=== PATIENT | female | born 1965 | race Caucasian/White ===

== ENCOUNTER 2018-10-13 11:42 | Emergency (ER) | payer MEDICAID, OTHER ==
[~2018-10-13] VITALS: Ht 149.9 cm; Wt 65.0 kg
[~2018-10-13 11:42] MED LIST: NAPR375T PO
[2018-10-13 12:10] VITALS: BP 154/83
--- NOTE | 2018-10-13 12:22 | NUR ---
PT GIVEN ICE PACK FOR SWELLING
[2018-10-13] MEDS ORDERED: HYDROcodone/acetaminophen 10/325mg tab PO ONE (12:35)
[2018-10-13] MEDS ORDERED: HYDR-4353 PO (13:15)
== END 2018-10-13 13:24 | disposition home or self-care (01) ==
LOC: ER 11:42
DX: S62.617A Displaced fracture of proximal phalanx of left little finger, initial encounter for closed fracture (principal); S80.212A Abrasion, left knee, initial encounter; Z98.51 Tubal ligation status; Z98.890 Other specified postprocedural states; W18.49XA Other slipping, tripping and stumbling without falling, initial encounter; Y93.02 Activity, running; Y92.481 Parking lot as the place of occurrence of the external cause; Y99.9 Unspecified external cause status
CPT/HCPCS: 26725; 73130; 99284

== ENCOUNTER 2021-07-13 01:21 | Emergency (ER) | payer MEDICAID, OTHER ==
[~2021-07-13] VITALS: Ht 149.9 cm; Wt 45.5 kg
[2021-07-13] MEDS ORDERED: mag hydrox/Alum hydrox/simeth 30ml oral suspension PO ONE (01:45)
[2021-07-13] MEDS ORDERED: fentaNYL/PF 50MCG/1 ML 2ML syringe IV ONE (01:45)
[2021-07-13] MEDS ORDERED: ondansetron/PF 4mg/2ml inj IV ONE (01:45)
[2021-07-13] MEDS ORDERED: famotidine/PF 10 mg/ml inj IV ONE (01:45)
[2021-07-13] MEDS ORDERED: normal saline 1000ml 1,000 ML IV ONE ×2 (01:45→02:50)
[2021-07-13] MEDS ORDERED: LIDOcaine Viscous 15ml cup MM ONE (01:45)
[2021-07-13] MEDS ORDERED: pantoprazole 40MG/D5 100ML BAG 100 ML IV ONE (01:45)
[2021-07-13] MEDS ORDERED: pantoprazole 40MG/NS 100ML BAG 100 ML IV ONE (01:46)
[2021-07-13 01:57] LABS: BASOPHILS % (AUTO) 0.2 % (0-1); EOSINOPHILS % (AUTO) 0.3 % (0-6); HEMATOCRIT 27.1 % (35.0-45.0); HEMOGLOBIN 9.1 g/dl (12.0-16.0); LYMPHOCYTES # (AUTO) 1.9 X10'3 (1.1-4.8); LYMPHOCYTES % (AUTO) 16.1 % (21-51); MEAN CORPUSCULAR HGB CONC 33.4 g/dL (33.0-36.5); MONOCYTES # (AUTO) 0.6 X10'3 (0-0.9); MONOCYTES % (AUTO) 5.4 % (2-12); NEUTROPHILS # (AUTO) 9.2 X10'3 (1.8-7.7); PLATELET COUNT 318 X10'3 (140-440); RED BLOOD COUNT 3.01 X10'6 (4.20-5.60); RED CELL DISTRIBUTION WIDTH 13.5 % (11.5-14.5); WHITE BLOOD COUNT 11.8 X10'3 (4.5-11.0)
[2021-07-13 02:08] LABS: ALANINE AMINOTRANSFERASE 17 U/L (12-78); ALBUMIN 2.6 G/DL (3.4-5.0); ALKALINE PHOSPHATASE 54 IU/L (46-116); ANION GAP 11 (8-16); ASPARTATE AMINO TRANSFERASE 11 U/L (10-37); BILIRUBIN,TOTAL 0.3 MG/DL (0.1-1.0); BLOOD UREA NITROGEN 56 MG/DL (7-18); BUN/CREATININE RATIO 71.8 (6.6-38.0); CALCIUM 7.7 MG/DL (8.5-10.1); CHLORIDE 102 MMOL/L (99-107); CREATININE 0.78 MG/DL (0.40-0.90); GLUCOSE 164 MG/DL (70-104); POTASSIUM 3.5 MMOL/L (3.5-5.1); SODIUM 137 MMOL/L (135-145); TOTAL CARBON DIOXIDE 24.5 MMOL/L (24-32); TOTAL PROTEIN 5.1 G/DL (6.4-8.2); eGFR 76 ML/MIN
[2021-07-13 02:12] LABS: LIPASE < 50 U/L (73-393)
[2021-07-13 02:41] LABS: ETHANOL < 0.010 GM/DL (0.0-0.010)
[2021-07-13 02:48] VITALS: BP 81/54
[2021-07-13] MEDS ORDERED: PANT-47 PO (03:29)
[2021-07-13 03:34] LABS: CLARITY,URINE SLIGHTLY CLOUDY (Clear); COLOR,URINE YELLOW (Yellow); GLUCOSE, URINE NEGATIVE (Neg); KETONES,URINE 15 mg/dl (Neg); LEUKOCYTE ESTERASE ,URINE MODERATE (Neg); NITRITES, URINE NEGATIVE (Neg); OCCULT BLOOD,URINE NEGATIVE (Neg); PROTEIN,URINE NEGATIVE (Neg); UROBILINOGEN,URINE 0.2 E.U/dL (0.2-1.0)
[2021-07-13 03:46] LABS: UA COLLECTION TYPE CLN CATCH MIDSTREAM
[2021-07-13 03:48] LABS: HYALINE CASTS 0-3 /LPF (NEGATIVE); MUCUS STRANDS MODERATE /LPF (Neg); SQUAMOUS EPITHELIAL CELL,UR MODERATE /LPF (FEW)
[2021-07-13 03:49] LABS: BACTERIA,URINE FEW /HPF (Neg); RBC,URINE 0-2 /HPF (0-2)
[2021-07-13 03:51] LABS: TRANSITIONAL EPI CELLS,URINE FEW /HPF
== END 2021-07-13 07:41 | disposition home or self-care (01) ==
LOC: ER 01:21
DX: R10.13 Epigastric pain (principal); R10.11 Right upper quadrant pain; R11.2 Nausea with vomiting, unspecified; R42 Dizziness and giddiness; K21.9 Gastro-esophageal reflux disease without esophagitis; Z98.51 Tubal ligation status; Z72.89 Other problems related to lifestyle; Z98.890 Other specified postprocedural states; Z79.899 Other long term (current) drug therapy
CPT/HCPCS: 36415; 74176; 80053; 80320; 81001; 83690; 84145; 84484; 85025; 87088; 93005; 96361; 96374; 96375; 99285; C9113; J2405; J3010; J3490; J7030